=== PATIENT | male | born 1985 | race Caucasian/White ===

== ENCOUNTER 2017-04-01 17:38 | Emergency (ER) | payer OTHER ==
[~2017-04-01] VITALS: Ht 188 cm; Wt 81.7 kg
[~2017-04-01 17:38] MED LIST: DAYPRO600 MG PO; FLEXERIL PO; HYDROCODONE-AP1 EAC6 PO; IBUPROFEN 600600 M1 PO; LISINOPRIL10 MG PO; NOHOMEMEDICATIONS; NORCO 5-325 TA1 EACH PO; PREDNISONE 20 M20 M1 PO; PRILOSEC 20 MG20 MG PO; PROVENTIL HFA6.7 G1 INH; SEROQUEL 50 MG50 MG PO; TRAMADOL 50 MG50 MG PO
[2017-04-01 18:22] LABS: ABSOLUTE NEUTROPHILS 4.3 thou/uL (1.4-8.2); BASOPHILS 0.4 % (0.0-2.0); EOSINOPHILS 1.2 % (0.0-3.0); HEMOGLOBIN 14.8 gm/dL (14.0-18.0); LYMPHOCYTES 34.9 % (24.0-44.0); MCH 30.5 pg (26.0-34.0); MCHC 34.4 g/dL (28.0-37.0); MCV 88.7 fL (80.0-100.0); MONOCYTES 5.5 % (1.0-8.0); PLATELET COUNT 193 thou/uL (150-400); RBC 4.85 mil/uL (4.50-6.00); RDW 13.8 % (10.5-14.5); WBC 7.4 thou/uL (4.0-11.0)
[2017-04-01 18:25] LABS: MANUAL DIFF NO
[2017-04-01 18:30] LABS: CREATININE 1.1 mg/dL (0.7-1.3); POTASSIUM 3.4 mmol/L (3.5-5.1)
[2017-04-01 18:34] LABS: ALBUMIN 4.2 g/dL (3.4-5.0); TOTAL BILIRUBIN 0.5 mg/dL (<0.1-1.0)
[2017-04-01 18:38] LABS: URINE BILIRUBIN NEGATIVE (Negative); URINE BLOOD NEGATIVE (Negative); URINE COLOR YELLOW; URINE GLUCOSE-RANDOM* NEGATIVE (Negative); URINE KETONES NEGATIVE (Negative); URINE LEUKOCYTES-REFLEX NEGATIVE (Negative); URINE PROTEIN (DIPSTICK) NEGATIVE (Negative); URINE SPECIFIC GRAVITY <= 1.005 (1.003-1.035); URINE UROBILINOGEN 0.2 E.U./dl (0.2-1.0)
[2017-04-01] MEDS ORDERED: PROAIR HFA8.5 GM INH (18:57)
[2017-04-01] MEDS ORDERED: BENTYL 20 MG TA20 M1 PO (18:57)
[2017-04-01] MEDS ORDERED: QUETIAPINE FUM100 MG PO (19:09)
[2017-04-01 19:12] VITALS: BP 115/82
== END 2017-04-01 19:17 | disposition home or self-care (01) ==
LOC: ER 17:38
PROVIDERS: Emergency Medicine
DX: R10.13 Epigastric pain (principal); I10 Essential (primary) hypertension; F17.210 Nicotine dependence, cigarettes, uncomplicated; F15.10 Other stimulant abuse, uncomplicated; Z88.0 Allergy status to penicillin

== ENCOUNTER 2017-05-14 17:50 | Emergency (ER) | payer OTHER ==
[~2017-05-14] VITALS: Ht 188 cm; Wt 83.9 kg
[~2017-05-14 17:50] MED LIST changes: +BENTYL 20 MG TA20 M1 PO; +PROAIR HFA8.5 GM INH; +QUETIAPINE FUM100 MG PO
[2017-05-14] MEDS ORDERED: TRAMADOL 50 MG50 MG PO (19:10)
[2017-05-14 19:35] VITALS: BP 129/74
== END 2017-05-14 19:11 | disposition home or self-care (01) ==
LOC: ER 17:50
DX: S86.811A Strain of other muscle(s) and tendon(s) at lower leg level, right leg, initial encounter (principal); I10 Essential (primary) hypertension; F17.210 Nicotine dependence, cigarettes, uncomplicated; F15.10 Other stimulant abuse, uncomplicated; Z88.0 Allergy status to penicillin; X50.0XXA Overexertion from strenuous movement or load, initial encounter; Y93.89 Activity, other specified; Y92.89 Other specified places as the place of occurrence of the external cause; Y99.8 Other external cause status

== ENCOUNTER 2017-06-02 21:58 | Emergency (ER) | payer OTHER ==
[~2017-06-02] VITALS: Ht 188 cm; Wt 83.9 kg
[2017-06-03] MEDS ORDERED: TRAMADOL 50 MG50 MG PO (00:38)
[2017-06-03] MEDS ORDERED: ROBAXIN500 MG PO (00:38)
[2017-06-03] MEDS ORDERED: NAPROSYN500 MG PO (00:38)
[2017-06-03 00:40] VITALS: BP 127/86
== END 2017-06-03 01:05 | disposition home or self-care (01) ==
LOC: ER 21:58
DX: S20.212A Contusion of left front wall of thorax, initial encounter (principal); M62.830 Muscle spasm of back; I10 Essential (primary) hypertension; F17.210 Nicotine dependence, cigarettes, uncomplicated; F10.99 Alcohol use, unspecified with unspecified alcohol-induced disorder; Z88.0 Allergy status to penicillin; W11.XXXA Fall on and from ladder, initial encounter; Y93.89 Activity, other specified; Y92.89 Other specified places as the place of occurrence of the external cause; Y99.0 Civilian activity done for income or pay

== ENCOUNTER 2017-08-08 23:56 | Emergency (ER) | payer OTHER ==
[~2017-08-08] VITALS: Ht 193 cm; Wt 88.5 kg
[~2017-08-08 23:56] MED LIST changes: +NAPROSYN500 MG PO; +ROBAXIN500 MG PO
[2017-08-09] MEDS ORDERED: IBUPROFEN 600600 M1 PO (00:20)
[2017-08-09] MEDS ORDERED: CLEOCIN HCL150 MG PO (00:20)
[2017-08-09 01:12] VITALS: BP 124/86
== END 2017-08-09 01:14 | disposition home or self-care (01) ==
LOC: ER 23:56
DX: K02.9 Dental caries, unspecified (principal); R68.84 Jaw pain; F17.210 Nicotine dependence, cigarettes, uncomplicated; I10 Essential (primary) hypertension; Z88.0 Allergy status to penicillin

== ENCOUNTER 2017-12-24 00:31 | Emergency (ER) | payer OTHER ==
[~2017-12-24] VITALS: Ht 190.5 cm; Wt 72.6 kg
[~2017-12-24 00:31] MED LIST changes: +CLEOCIN HCL150 MG PO
[2017-12-24 01:11] LABS: CALCIUM 9.5 mg/dL (8.5-10.1); CREATININE 1.2 mg/dL (0.7-1.3); POTASSIUM 3.1 mmol/L (3.5-5.1)
== END 2017-12-24 02:39 | disposition home or self-care (01) ==
LOC: ER 00:31
PROVIDERS: Emergency Medicine
DX: R04.2 Hemoptysis (principal); J02.9 Acute pharyngitis, unspecified; I10 Essential (primary) hypertension; F17.210 Nicotine dependence, cigarettes, uncomplicated; Z88.0 Allergy status to penicillin

== ENCOUNTER 2018-02-23 17:34 | Emergency (ER) | payer OTHER ==
[~2018-02-23] VITALS: Ht 193 cm; Wt 81.7 kg
[2018-02-23 18:11] LABS: ABSOLUTE NEUTROPHILS 7.5 thou/uL (1.4-8.2); BASOPHILS 0.4 % (0.0-2.0); EOSINOPHILS 0.4 % (0.0-3.0); HEMATOCRIT 41.8 % (42.0-52.0); HEMOGLOBIN 14.5 gm/dL (14.0-18.0); LYMPHOCYTES 21.3 % (24.0-44.0); MCH 31.2 pg (26.0-34.0); MCHC 34.7 g/dL (28.0-37.0); MCV 89.9 fL (80.0-100.0); MONOCYTES 6.4 % (1.0-8.0); PLATELET COUNT 293 thou/uL (150-400); POLYS 71.5 % (36.0-66.0); RBC 4.65 mil/uL (4.50-6.00); RDW 14.5 % (10.5-14.5); WBC 10.4 thou/uL (4.0-11.0)
[2018-02-23 18:16] LABS: CALCIUM 9.1 mg/dL (8.5-10.1); CREATININE 0.9 mg/dL (0.7-1.3); POTASSIUM 3.8 mmol/L (3.5-5.1)
[2018-02-23 18:22] LABS: ALBUMIN 3.6 g/dL (3.4-5.0); TOTAL BILIRUBIN 0.2 mg/dL (<0.1-1.0); TOTAL PROTEIN 6.5 g/dL (6.4-8.2)
[2018-02-23 18:49] LABS: URINE BILIRUBIN NEGATIVE (Negative); URINE BLOOD NEGATIVE (Negative); URINE CLARITY CLEAR; URINE COLOR YELLOW; URINE GLUCOSE-RANDOM* NEGATIVE (Negative); URINE KETONES NEGATIVE (Negative); URINE LEUKOCYTES-REFLEX NEGATIVE (Negative); URINE NITRITE-REFLEX NEGATIVE (Negative); URINE PROTEIN (DIPSTICK) NEGATIVE (Negative); URINE UROBILINOGEN 0.2 E.U./dl (0.2-1.0)
[2018-02-23 18:58] LABS: AMP/METHAMP Negative (Negative); BARBITURATES Negative (Negative); BENZODIAZEPINES POSITIVE (Negative); COCAINE Negative (Negative); METHADONE Negative (Negative); OPIATES Negative (Negative); PCP Negative (Negative)
[2018-02-23] MEDS ORDERED: LISINOPRIL10 MG PO (18:59)
[2018-02-23] MEDS ORDERED: QUETIAPINE FUM100 MG PO (18:59)
[2018-02-23] MEDS ORDERED: NAPROSYN500 MG PO (19:24)
[2018-02-23] MEDS ORDERED: MEDROLDOSEPACK PO (19:24)
[2018-02-23] MEDS ORDERED: HYDROCODONE-AP1 EAC6 PO (19:24)
[2018-02-23 19:55] VITALS: BP 118/64
== END 2018-02-23 19:57 | disposition home or self-care (01) ==
LOC: ER 17:34
PROVIDERS: Nurse Practitioner
DX: M54.17 Radiculopathy, lumbosacral region (principal); I10 Essential (primary) hypertension; F17.210 Nicotine dependence, cigarettes, uncomplicated; Z88.0 Allergy status to penicillin

== ENCOUNTER 2019-02-25 16:24 | Emergency (ER) | payer OTHER ==
[~2019-02-25] VITALS: Ht 190.5 cm; Wt 88.5 kg
[~2019-02-25 16:24] MED LIST changes: +MEDROLDOSEPACK PO
[2019-02-25 17:50] VITALS: BP 143/97
[2019-02-25] MEDS ORDERED: IBUPROFEN 800800 M1 PO (18:19)
== END 2019-02-25 18:15 | disposition home or self-care (01) ==
LOC: ER 16:24
DX: S50.11XA Contusion of right forearm, initial encounter (principal); I10 Essential (primary) hypertension; F17.210 Nicotine dependence, cigarettes, uncomplicated; Z88.0 Allergy status to penicillin; W01.0XXA Fall on same level from slipping, tripping and stumbling without subsequent striking against object, initial encounter; Y93.89 Activity, other specified; Y92.89 Other specified places as the place of occurrence of the external cause; Y99.8 Other external cause status

== ENCOUNTER → 2019-06-29 | Outpatient (CLI) | payer OTHER ==
[~2019-06-29] MED LIST changes: +IBUPROFEN 800800 M1 PO
--- NOTE | 2019-07-16 00:52 | PFR/MVV ---
[facility] [place] [address] PULMONARY FUNCTION MVV/REPORT Name: BRIANA PARRY Room #: [facility]#: [id number] Admission: 06/29/19 Attend Phys: Geoffrey Bingham MD Discharge: Date of : 83 Report #: [id number] THIS REPORT FOR: //name// COPIES FOR: AGE: 33 SEX/RACE: M/C >> SPIROMETRY: (BTPS) Height: 76 in cm Weight: 190 lbs kg Exam Date: 06/29/19 PRE-RX POST-RX PRED BEST %PRED BEST %PRED %CHG FVC LITERS . 6.16 . 5.03 . 82 . 5.56 . 90 . 11 FEV1 LITERS . 4.64 . 3.82 . 82 . 4.35 . 94 . 14 FEV1/FVC % . 75 . 76 . 101 . 78 . 104 . 3 MUR29-35% L/Sec . 4.55 . 3.22 . 71 . 4.07 . 89 . 26 PEF L/SEC . 10.96 . 7.25 . 66 . 7.18 . 66 . -1 FEF50/FIF50 UNITLESS . . 1.40 . . 1.70 . . 22 MVV L/Min . 193 . 35 . 18 f 1/Min . . 145 . >> LUNG VOLUMES: (BTPS) PRE-RX POST-RX PRED AVG %PRED AVG %PRED %CHG VC Liters . 6.16 . 5.90 . 96 . . . TLC Liters . 8.48 . 6.82 . 80 . . . RV Liters . 2.34 . 0.92 . 39 . . . RV/TLC % . 28 . 13 . 48 . . . FRC PL Liters . 4.66 . 2.64 . 57 . . . FRC N2 Liters . . . . . . ERV Liters . 2.05 . 1.72 . 84 . . . IC Liters . 4.09 . 4.20 . 103 . . . >> DIFFUSION: DLCO ml/Min/mmHg . 32.3 . 21.8 . 67 . . . DL [place] ml/Min/mmHg . 32.3 . 21.8 . 67 . . . DLCO/VA ml/Min/mmHg . 4.43 . 3.04 . 69 . . . VA Liters . 8.34 . 7.17 . 86 . . . [facility] [address] [place] [address] PULMONARY FUNCTION MVV/REPORT Name: BRIANA PARRY Room #: [facility].#: [id number] Admission: 06/29/19 Attend Phys: Geoffrey Bingham MD Discharge: Date of : 83 Report #: [id number] COMMENTS: COMMENTS: >> RESISTANCE: PRE-RX PRED AVG %PRED Raw Total cmH20/L/Sec . . 2.94 . Raw Insp cmH20/L/Sec . . 1.64 . Raw Exp cmH20/L/Sec . . 3.27 . Raw cmH20/L/Sec . 0.91 . 1.50 . 165 Gaw L/Sec/cmH20 . 1.119 . 0.668 . 60 sRaw cmH20 Sec . 4.23 . 7.58 . 179 sGaw l/cmH20 Sec . 0.236 . 0.132 . 56 Vtq Liters . . 5.06 . # = OUTSIDE 95% CONFIDENCE INTERVAL CALIBRATION: PRED: 3.00 ACTUAL: EXP 3.01 INSP 3.02 [facility] [place] [place] [id number] >> INTERPRETATION/IMPRESSION: CC: Geoffrey Bingham DATE OF SERVICE: 06/29/2019 SPIROMETRY: FEV1 is 3.82 liters (82%), FVC is 5.03 liters (82%), FEV1/FVC ratio 76%. Postbronchodilator therapy with significant improvement. FEV1 increased to 4.35 liters (14% change), FVC improved to 5.56 liters (11% change). LUNG VOLUMES: Total lung capacity is 6.82 liters (80%). Diffusing capacity is 67%. IMPRESSION: Pulmonary function studies are consistent with essentially normal pulmonary flow. There is a significant response to bronchodilator therapy. Diffusing capacity is slightly decreased. <ELECTRONICALLY SIGNED> By: Feliberto Talbot MD 07/16/19 0052 Feliberto Tablot MD /nt
== END ==
LOC: PUL 09:36
DX: Z09 Encounter for follow-up examination after completed treatment for conditions other than malignant neoplasm (principal); Z87.09 Personal history of other diseases of the respiratory system